=== PATIENT | male | born 1950 | race Caucasian/White ===

== ENCOUNTER 2024-05-26 22:20 | Observation (INO) | payer MEDICARE, BC ==
[2024-05-26] MEDS: Silver Sulfadiazine 1% Crm 400 GM Jar TOP ONE (23:02)
[2024-05-27] MEDS: Acetaminophen 325 MG Tab PO PRN (00:37)
[2024-05-27 10:34] LABS: INFLUENZA A NAA NEGATIVE (NEGATIVE); INFLUENZA B NAA NEGATIVE (NEGATIVE); RESPIRATORY SYNCYTIAL VIR NAA NEGATIVE (NEGATIVE)
[2024-05-27 10:37] LABS: CORONAVIRUS COVID-19 NAA POSITIVE (NEGATIVE)
[2024-05-27 11:44] LABS: HEMOGLOBIN 9.9 g/dL (13.0-18.0); MEAN CORPUSCULAR HGB CONC 31.9 g/dL (31.0-35.0); MEAN PLATELET VOLUME 11.2 fL (6.0-10.0); PLATELET COUNT,PLT 101 K/uL (150-400); RED BLOOD CELL COUNT 2.91 M/uL (4.50-6.50); RED CELL DISTRIBUTION WIDTH 16.6 % (11.0-16.0)
[2024-05-27] MEDS ORDERED: Non-Formulary Medication 1 Each (Aspirin [Aspirin] 81 MG Tab.Chew) PO SCH (12:00)
[2024-05-27 12:04] LABS: MEAN CORPUSCULAR VOLUME 107 fL (76-96)
[2024-05-27 12:08] LABS: A/G RATIO 0.9 (0.8-2.0); ALBUMIN 2.9 g/dL (3.4-5.0); ANION GAP 11.7 mmol/L (5.0-15.0); BILIRUBIN TOTAL 0.8 mg/dL (0.0-1.0); BUN/CREATININE RATIO 24.4 (6-25); CARBON DIOXIDE,CO2 32.6 mmol/L (21.0-32.0); CREATININE 1.35 mg/dL (0.70-1.30); EST CRCL DRUG DOSING (CG) 52.68 mL/min; POTASSIUM,K 3.3 mmol/L (3.5-5.1); PROTEIN TOTAL,TP 6.1 g/dL (6.4-8.2)
[2024-05-27] MEDS: Non-Formulary Medication 1 Each (Escitalopram [Lexapro] 20 MG Tablet) PO SCH (13:00)
[2024-05-27] MEDS: Non-Formulary Medication 1 Each (Rivaroxaban [Xarelto] 20 MG Tablet) PO SCH (13:00)
[2024-05-27] MEDS: Non-Formulary Medication 1 Each (Furosemide [Furosemide] 40 MG Tablet) PO SCH (13:00)
[2024-05-27] MEDS: Non-Formulary Medication 1 Each (Folic Acid [Folic Acid] 1 MG Tablet) PO SCH (13:00)
[2024-05-27] MEDS: Non-Formulary Medication 1 Each (Metformin [Glucophage Xr] 500 MG Tab.Er) PO SCH (13:02)
[2024-05-27] MEDS: Non-Formulary Medication 1 Each (Hydrochlorothiazide [Hydrochlorothiazide] 25 MG Tablet) PO SCH (13:02)
[2024-05-27] MEDS: Non-Formulary Medication 1 Each (Potassium Chloride [Potassium Chloride] 10 MEQ Cap.Er) PO SCH (13:02)
[2024-05-27] MEDS: ARIPIPRAZOLE 2 MG PO SCH (13:02)
[2024-05-27] MEDS: Albuterol/Ipratropium 3.0-0.5 MG/3 ML Neb Soln NEB SCH (13:59)
[2024-05-27] MEDS: Nirmatrelvir/Ritonavir 150 MG/100 MG Dose Pack (Renal Dose) PO SCH (13:59)
[2024-05-27 14:14] LABS: ANISOCYTOSIS FEW; POIKILOCYTOSIS FEW; SCHISTOCYTES OCCASIONAL; TARGET CELLS OCCASIONAL
[2024-05-27 14:15] LABS: ELLIPTOCYTES FEW; MICROCYTOSIS FEW; STOMATOCYTES OCCASIONAL; TEARDROP CELLS OCCASIONAL
[2024-05-27 14:16] LABS: GIANT PLATELETS RARE; PLATELET COUNT ESTIMATE DECREASED; SMUDGE CELLS OCCASIONAL
[2024-05-27] MEDS: Non-Formulary Medication 1 Each (Rosuvastatin [Crestor] 20 MG Tablet) PO SCH (19:53)
[2024-05-28] MEDS: Aspirin 81 MG Tab.EC PO SCH (07:29)
[2024-05-28] MEDS: Non-Formulary Medication 1 Each (Fluticasone Propionate [Flonase Allergy Relief] 9.9 ML Sp NAS SCH (07:33)
== END 2024-05-28 10:45 | disposition home or self-care (01) ==
LOC: LB.ED 22:20 → UNDOADMOB 05-27 09:27 → LB.MS 05-27 09:27
PROVIDERS: ADMIT Surgery; ATTEND Surgery
DX: S09.90XA Unspecified injury of head, initial encounter (principal); U07.1 COVID-19; I10 Essential (primary) hypertension; E11.9 Type 2 diabetes mellitus without complications; G47.30 Sleep apnea, unspecified; C34.90 Malignant neoplasm of unspecified part of unspecified bronchus or lung; Z79.82 Long term (current) use of aspirin; Z79.899 Other long term (current) drug therapy; W18.30XA Fall on same level, unspecified, initial encounter
CPT/HCPCS: 0241U; 36415; 70450; 71046; 71250; 80053; 85025; 94640; 99222; 99238; A9270-GY; G0378; J7620